=== PATIENT | female | born 1995 | race Two or more races ===

== ENCOUNTER 2018-08-21 19:46 | Emergency (ER) | payer MEDICAID ==
[~2018-08-21] VITALS: Ht 157.5 cm; Wt 52.2 kg
[2018-08-21 20:18] VITALS: BP 133/86
== END 2018-08-21 23:57 | disposition left against medical advice (07) ==
LOC: MERGE 19:46 → ER 19:46
DX: S80.261A Insect bite (nonvenomous), right knee, initial encounter (principal); Z53.21 Procedure and treatment not carried out due to patient leaving prior to being seen by health care provider; W57.XXXA Bitten or stung by nonvenomous insect and other nonvenomous arthropods, initial encounter; Y93.89 Activity, other specified; Y99.8 Other external cause status; Y92.89 Other specified places as the place of occurrence of the external cause